=== PATIENT | female | born 2000 | race Caucasian/White ===

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

== ENCOUNTER 2024-09-13 13:13 | Emergency (ER) | payer MEDICAID ==
[~2024-09-13] VITALS: Ht 152.4 cm; Wt 69.0 kg
[~2024-09-13 13:13] MED LIST changes: +ACET-2708 MT; -FLUO-123 PO; +FLUO-335 PO
[2024-09-13 13:51] VITALS: O2SAT 98
[2024-09-13] MEDS: ACETAMINOPHEN 325MG TABLET PO ONE (14:29)
[2024-09-13] MEDS: PENICILLIN G BENZATHINE 1,200,000 UNITS/2ML SYR IM STA (14:55)
[2024-09-13] MEDS ORDERED: PHEN20SP MT (15:22)
[2024-09-13 15:31] VITALS: BP 103/63; PULSE 93; RESP 20; TEMP 38.8; O2SAT 98
== END 2024-09-13 15:55 | disposition home or self-care (01) ==
LOC: ER 13:13
DX: J02.9 Acute pharyngitis, unspecified (principal); R50.9 Fever, unspecified; F32.A Depression, unspecified; F41.9 Anxiety disorder, unspecified; F10.90 Alcohol use, unspecified, uncomplicated; Z88.6 Allergy status to analgesic agent; Z79.899 Other long term (current) drug therapy; Y90.9 Presence of alcohol in blood, level not specified
CPT/HCPCS: 96372; 99283; J0561; Z7610 ×3; A4606